=== PATIENT | female | born 1955 | race Caucasian/White ===

== ENCOUNTER 2017-08-26 09:13 | Outpatient (CLI) | payer OTHER ==
[~2017-08-26 09:13] MED LIST: CATAFLAM50 MG PO; MICARDIS20 MG; NEURONTIN600 MG; NORVASC2.5 MG; ORPH100T PO; SYNTHROID50 MCG
== END 2017-08-26 09:18 | disposition home or self-care (01) ==
LOC: RAD 09:13
DX: R06.02 Shortness of breath (principal)

== ENCOUNTER 2017-09-06 08:19 | Outpatient (CLI) | payer OTHER ==
[~2017-09-06] VITALS: Ht 152.4 cm; Wt 72.1 kg
== END 2017-09-06 08:35 | disposition home or self-care (01) ==
LOC: OFIC 805 08:19
DX: J30.89 Other allergic rhinitis (principal); R42 Dizziness and giddiness

== ENCOUNTER 2017-09-19 10:51 | Outpatient (CLI) | payer OTHER ==
[~2017-09-19] VITALS: Ht 152.4 cm; Wt 72.1 kg
== END 2017-09-19 11:10 | disposition home or self-care (01) ==
LOC: OFIC 805 10:51
DX: R42 Dizziness and giddiness (principal); D10.1 Benign neoplasm of tongue

== ENCOUNTER 2017-11-01 15:57 | Outpatient (CLI) | payer OTHER | END 2017-11-01 16:10 | disposition home or self-care (01) | LOC: OFIC 805 15:57 | DX: D10.1 Benign neoplasm of tongue (principal); R42 Dizziness and giddiness ==

== ENCOUNTER 2017-11-26 13:50 | Outpatient (CLI) | payer OTHER ==
[~2017-11-26] VITALS: Ht 152.4 cm; Wt 72.1 kg
== END 2017-11-26 14:10 | disposition home or self-care (01) ==
LOC: OFIC 805 13:50
DX: K13.79 Other lesions of oral mucosa (principal); K21.0 Gastro-esophageal reflux disease with esophagitis; R49.0 Dysphonia

== ENCOUNTER 2017-12-20 15:20 | Outpatient (CLI) | payer OTHER ==
[~2017-12-20] VITALS: Ht 152.4 cm; Wt 72.1 kg
== END 2017-12-20 17:24 | disposition home or self-care (01) ==
LOC: OFIC 805 15:20
DX: K14.8 Other diseases of tongue (principal); K21.0 Gastro-esophageal reflux disease with esophagitis

== ENCOUNTER 2018-03-16 15:01 | Outpatient (CLI) | payer OTHER ==
[~2018-03-16] VITALS: Ht 152.4 cm; Wt 72.1 kg
== END 2018-03-16 15:15 | disposition home or self-care (01) ==
LOC: OFIC 805 15:01
DX: J35.01 Chronic tonsillitis (principal); R19.6 Halitosis

== ENCOUNTER → 2020-01-09 | Outpatient (CLI) | payer OTHER ==
[~2020-01-09] MED LIST changes: +SULINDAC150 MG PO
== END | disposition home or self-care (01) ==
LOC: OFIC 805 12:55
PROVIDERS: ATTEND Otolaryngology Otology & Neurotology
DX: J31.0 Chronic rhinitis (principal); H74.8X1 Other specified disorders of right middle ear and mastoid; H69.81 Other specified disorders of Eustachian tube, right ear

== ENCOUNTER 2020-02-25 08:00 | Outpatient (CLI) | payer OTHER ==
[~2020-02-25 08:00] MED LIST changes: +CHLORZOXAZONE500 MG PO; +NABUMETONE750 MG PO; +NORFLEX100MG PO
== END 2020-02-25 18:00 | disposition home or self-care (01) ==
LOC: PPH VACUNA 08:00
PROVIDERS: ATTEND Emergency Medicine Pediatric Emergency Medicine
DX: Z23 Encounter for immunization (principal)

== ENCOUNTER 2020-03-17 07:59 | Outpatient (CLI) | payer OTHER | END 2020-03-17 12:41 | disposition home or self-care (01) | LOC: PPH VACUNA 07:59 | PROVIDERS: ATTEND Emergency Medicine Pediatric Emergency Medicine | DX: Z23 Encounter for immunization (principal) ==

== ENCOUNTER → 2020-11-28 | Outpatient (CLI) | payer OTHER ==
[~2020-11-28] MED LIST changes: +DICLOFENAC SODI75 MG PO; +ZANAFLEX2 MG PO; +ZANAFLEX4 MG PO
== END | disposition home or self-care (01) ==
LOC: PPH VACUNA 08:00
PROVIDERS: ATTEND Emergency Medicine Pediatric Emergency Medicine
DX: Z23 Encounter for immunization (principal)

== ENCOUNTER 2021-01-07 14:24 | Outpatient (CLI) | payer OTHER | END 2021-01-07 14:28 | disposition home or self-care (01) | LOC: SONOGRAMA 14:24 | PROVIDERS: ATTEND Urology | DX: R31.1 Benign essential microscopic hematuria (principal) ==

== ENCOUNTER 2021-05-29 08:00 | Outpatient (CLI) | payer OTHER | END 2021-05-29 08:30 | disposition home or self-care (01) | LOC: PPH VACUNA 08:00 | PROVIDERS: ATTEND Emergency Medicine Pediatric Emergency Medicine | DX: Z23 Encounter for immunization (principal) ==

== ENCOUNTER 2021-11-09 12:30 | Outpatient (CLI) | payer OTHER | END 2021-11-09 12:40 | disposition home or self-care (01) | LOC: PPH VACUNA 12:30 | PROVIDERS: ATTEND Emergency Medicine Pediatric Emergency Medicine | DX: Z23 Encounter for immunization (principal) ==

== ENCOUNTER 2022-05-21 07:24 | Outpatient (CLI) | payer OTHER | END 2022-05-21 07:25 | disposition home or self-care (01) | LOC: NUCLEAR 07:24 | PROVIDERS: ATTEND Internal Medicine | DX: I87.2 Venous insufficiency (chronic) (peripheral) (principal) ==

== ENCOUNTER 2022-05-21 08:10 | Outpatient (CLI) | payer OTHER | END 2022-05-21 08:24 | disposition home or self-care (01) | LOC: RAD 08:10 | PROVIDERS: ATTEND Specialist | DX: M51.36 Other intervertebral disc degeneration, lumbar region (principal); M16.52 Unilateral post-traumatic osteoarthritis, left hip; M46.1 Sacroiliitis, not elsewhere classified; Z96.641 Presence of right artificial hip joint ==

== ENCOUNTER 2022-05-26 10:50 | Outpatient (CLI) | payer OTHER | END 2022-05-26 10:57 | disposition home or self-care (01) | LOC: SONOGRAMA 10:50 | PROVIDERS: ATTEND Specialist | DX: M70.62 Trochanteric bursitis, left hip (principal) ==